=== PATIENT | female | born 1995 | race Caucasian/White ===

== ENCOUNTER 2016-12-20 08:00 | Emergency (ER) | payer OTHER | END 2016-12-20 09:39 | disposition home or self-care (01) | LOC: FER 08:00 | DX: L23.9 Allergic contact dermatitis, unspecified cause (principal); F17.210 Nicotine dependence, cigarettes, uncomplicated; Z79.899 Other long term (current) drug therapy | CPT/HCPCS: J2930 ==

== ENCOUNTER 2017-01-07 23:59 | Emergency (ER) | payer OTHER | END 2017-01-08 01:30 | disposition home or self-care (01) | LOC: FER 23:59 | DX: T76.11XA Adult physical abuse, suspected, initial encounter (principal); F17.210 Nicotine dependence, cigarettes, uncomplicated; Y04.0XXA Assault by unarmed brawl or fight, initial encounter; Y92.410 Unspecified street and highway as the place of occurrence of the external cause | CPT/HCPCS: 99283 ==

== ENCOUNTER 2021-06-07 14:12 | Emergency (ER) | payer OTHER ==
[~2021-06-07 14:12] MED LIST: AMOXICILLIN500 MG PO; AUGMENTIN 875-1 EACH PO; HYDROCODON-ACE1 EAC4 PO; MOTRIN600 MG PO; NORCO 5-325 TA1 EACH PO
[2021-06-07 15:49] LABS: BASOPHIL 0.5 % (0-2); EOSINOPHIL 0.1 % (0-5); HCT 24.2 % (37.0-47.0); LYMPHOCYTE 11.6 % (15-48); MCH 14.6 pg (25.0-31.0); MCHC 24.4 g/dL (32.0-36.0); MCV 59.9 fL (78.0-100.0); MONOCYTE 8.4 % (0-12); NEUTROPHIL 79.1 % (41-80); NRBC 0.7; PLT 413 K/uL (150-400); RBC 4.04 M/uL (4.20-5.40); RDW 20.8 % (11.5-14.0); WBC 8.9 K/uL (4.0-10.5)
[2021-06-07 16:08] LABS: ALBUMIN 3.1 g/dL (3.4-5.0); BILIRUBIN - TOTAL 0.4 mg/dL (0.2-1.0); BUN/CREAT RATIO (CALC) 18.6 RATIO; CREATININE 0.7 mg/dL (0.51-0.95); GLOBULIN (CALCULATION) 4.7 g/dL; TOTAL PROTEIN 7.8 g/dL (6.4-8.2)
[2021-06-07 16:18] LABS: HGB 5.9 g/dl (12.5-16.0)
[2021-06-07 16:37] LABS: LACTIC ACID 2.2 mmol/L (0.4-1.9)
[2021-06-07 16:44] LABS: BILIRUBIN 1+ mg/dL (NEGATIVE); BLOOD NEGATIVE Ery/uL (NEGATIVE); CLARITY CLEAR (CLEAR); COLOR YELLOW (YELLOW); GLUCOSE (U) NORMAL (NORMAL); LEUKOCYTES 1+ Leu/uL (NEGATIVE); NITRITE NEGATIVE (NEGATIVE); PROTEIN TRACE (LOW) mg/dL (NEGATIVE); SPECIFIC GRAVITY >=1.030 (1.001-1.030); UROBILINOGEN 0.2 mg/dL (0.2-1.0)
[2021-06-07 16:59] LABS: CORONAVIRUS 2019 SARS-COV-2 NEGATIVE (NEGATIVE); INFLUENZA A NAA NEGATIVE (NEGATIVE)
[2021-06-07 17:01] LABS: BACTERIA 1+; MUCOUS TRACE
[2021-06-07] MEDS ORDERED: BACTRIM DS TAB1 EACH PO (20:10)
[2021-06-07 23:11] LABS: HCT 28.7 % (37.0-47.0)
[2021-06-09 22:09] LABS: CHLAMYDIA TRACHOMATIS, NAA Negative (Negative); NEISSERIA GONORRHOEAE, NAA Negative (Negative)
== END 2021-06-07 23:54 | disposition home or self-care (01) ==
LOC: FER 14:12
PROVIDERS: Emergency Medicine; Internal Medicine
DX: K92.2 Gastrointestinal hemorrhage, unspecified (principal); D62 Acute posthemorrhagic anemia; D12.6 Benign neoplasm of colon, unspecified; N88.8 Other specified noninflammatory disorders of cervix uteri; N39.0 Urinary tract infection, site not specified; Z20.822 Contact with and (suspected) exposure to COVID-19
CPT/HCPCS: 36415; 36430; 71045; 76817; 80053; 81001; 83605; 84145; 84702; 85014; 85018; 85025; 86850; 86900; 86901; 86922; 87210; 87491; 87591; J2543; J7050; J7120; P9016; U0002